=== PATIENT | male | born 1945 | race Caucasian/White ===

== ENCOUNTER 2017-02-12 23:39 | Emergency (ER) | payer OTHER, MEDICARE ==
[~2017-02-12] VITALS: Ht 180.3 cm; Wt 100.3 kg
[~2017-02-12 23:39] MED LIST: ACYCLOVIR800 MG PO; ASCORBIC ACID500 MG PO; Ascorbic Acid,Ester- PO; Bactrim,Septra DS 80 PO; CALCI-CHEW500 MG PO; CIPRO750 MG PO; CITALOPRAM HBR10 MG PO; CITALOPRAM HBR20 MG PO; COLACE100 MG PO; CONSTULOSE10 GM/15 M PO; Colace PO; DILAUDID2 MG PO; Diflucan PO; Ditropan PO; FOLIC ACID1 MG PO; FOLVITE1 M1 PO; GABAPENTIN100 MG PO; Maxipime IV; Miralax, Glycolax PO; NORVASC10 MG PO; Neurontin PO; OXYBUTYNIN CHLOR5 MG PO; OXYCONTIN15 MG PO; OYST-CAL D, OS500 M1 PO; OxyCONTIN PO; PENTASA250 MG PO; PENTASA500 MG PO; PERCOCET 5/31 TABLET PO; SENNA-DOCUSATE1 EAC1 PO; THERAGRAN1 TABLET PO; Tums PO; Tylenol Regular Stre PO; Vancomycin IV; ZOFRAN4 MG PO; ZOFRAN8 MG; ZOVIRAX800 M1 PO; Zocor PO; Zyloprim PO; celeXA PO; oxyCODONE PO
[2017-02-13 00:08] VITALS: BP 000/00
[2017-02-13 00:12] LABS: POINT-OF-CARE METER ID UU13113747
== END 2017-02-13 02:41 ==
LOC: EME → EDBD 23:39 → EME 02-13 02:41
PROVIDERS: Emergency Medicine
PROC: 5A12012 Performance of Cardiac Output, Single, Manual (ICD-10-PCS; principal; 2017-02-12)
DX: I46.9 Cardiac arrest, cause unspecified (principal); E78.5 Hyperlipidemia, unspecified; I10 Essential (primary) hypertension; K21.9 Gastro-esophageal reflux disease without esophagitis; Z85.9 Personal history of malignant neoplasm, unspecified; Z87.442 Personal history of urinary calculi
CPT/HCPCS: 80047; 80048; 81003; 82150; 82948; 83605; 83690; 84484; 85025; 85610; 85730; 86900; 86901; 87040; 99281; 99285; G0480